=== PATIENT | male | born 1975 | race African-American/Black ===

== ENCOUNTER 2016-03-22 17:12 | Emergency (ER) | payer OTHER ==
[~2016-03-22] VITALS: Ht 193 cm; Wt 76.0 kg
[2016-03-22 17:44] VITALS: Ht 193 cm; Wt 76.0 kg
[2016-03-22] MEDS ORDERED: DOXY100T20 PO (18:52)
[2016-03-22] MEDS ORDERED: IBUP-1542 PO (18:52)
[2016-03-22] MEDS ORDERED: ACYC800T PO (18:52)
[2016-03-22] MEDS ORDERED: HYDR-906 PO (18:52)
--- NOTE | 2016-03-22 18:59 | ERD ---
ER Documentation Chief Complaint Date/Time DATE: 03/22/16 TIME: 18:57 Chief Complaint RIGHT EAR PAIN WITH SWOLLEN NODULE & RIGHT-SIDE ARGUETA X 2 DAYS HPI This 32-year-old male complains of pain anterior to his right ear and a headache which is superficial on the right side of the forehead and face starting 2 days ago. He denies any fevers, vomiting, shortness breath or chest pain. ROS All systems reviewed and are negative except as per history of present illness. Medications Home Meds Active Scripts Ibuprofen* (Ibuprofen*) 600 Mg Tablet, 600 MG PO Q6, #15 TAB Prov:DEBRA CROSS MD 03/22/16 Hydrocodone/Acetaminophen ([place] 5-325 Tablet) 1 Each Tablet, 1 EACH PO QID, # 12 TAB Prov:DEBRA CROSS MD 03/22/16 Doxycycline Hyclate* (Doxycycline Hyclate*) 100 Mg Tablet.dr, 100 MG PO BID for 7 Days, TAB Prov:DEBRA CROSS MD 03/22/16 Acyclovir* (Acyclovir*) 800 Mg Tablet, 800 MG PO 5 TIMES DAILY for 7 Days, TAB Prov:DEBRA CROSS MD 03/22/16 Allergies Allergies: Coded Allergies: No Known Allergy (Unverified , 10/07/15) PMhx/Soc Medical and Surgical Hx: pt denies Medical Hx, pt denies Surgical Hx History of Surgery: No Anesthesia Reaction: No Hx Neurological Disorder: No Hx Cardiac Disorders: No Hx Psychiatric Problems: No Hx Substance Use: Yes Hx Tobacco Use: Yes Smoking Status: Heavy tobacco smoker Physical Exam Vitals Vital Signs Date Time Temp Pulse Resp B/P Pulse Ox O2 Delivery O2 Flow Rate FiO2 03/22/16 17:44 99.7 79 20 134/81 100 Physical Exam Const: [] Alert, [id number] per Head: Atraumatic Eyes: Normal Conjunctiva ENT: Normal External Ears, Nose and Mouth. There is some swelling and tender nodule in the right preauricular area. Some tenderness on the right forehead extending to the right upper eyelid with some possible mild swelling on the scalp and affected area. There is no obvious rashes although there may be some slight irritation. There is no pulsatile arteries appreciated. Neck: Full range of motion..~ No meningismus. Resp: Clear to auscultation bilaterally Cardio: Regular rate and rhythm, no murmurs Abd: Soft, non tender, non distended. Normal bowel sounds Skin: No petechiae or rashes Back: No midline or flank tenderness Ext: No cyanosis, or edema Neur: Awake and alert Psych: Normal Mood and Affect Results 24 hrs Current Medications Medications (Trade) Dose Ordered Sig/Cherelle Route PRN Reason Start Time Stop Time Status Last Admin Dose Admin Dexamethasone (Decadron) 10 mg ONCE ONCE PO 03/22/16 19:00 03/22/16 19:01 Acetaminophen/ Hydrocodone Bitart ([place] (5/325)) 1 tab ONCE ONCE PO 03/22/16 19:00 03/22/16 19:01 Ibuprofen (Motrin) 600 mg ONCE ONCE PO 03/22/16 19:00 03/22/16 19:01 Acyclovir (Zovirax) 800 mg ONCE ONCE PO 03/22/16 19:00 03/22/16 19:01 Procedures/MDM This patient presents with a 2 day history of some swelling and tenderness in the right anterior ear consistent with a reactive lymph node. Tenderness in mild swelling on the right forehead and facial area suggest possible very early shingles without obvious rash. He may have folliculitis causing his lymphadenitis as well. He will be treated empirically with acyclovir, doxycycline and a short course of [place] and ibuprofen. Patient is advised to recheck for new or worsening symptoms with primary care doctor. P patient was administered Decadron 10 mg by mouth, [place] 5 mg and ibuprofen here in the ED. He was also given his first dose of acyclovir. Patient signs and symptoms not consistent with intracranial lesions, mass-effect, neurologic deficit, meningitis. Departure Diagnosis: Primary Impression: Zoster Herpes zoster complications: without complications Qualified Code: B02.9 - Herpes zoster without complication Additional Impression: Lymph node enlargement Condition: Stable Patient Instructions: Lymphangitis, Herpes Zoster Additional Instructions: Suspect early shingles. We will treat for this as well as folliculitis. Recheck for new or worsening symptoms or primary care doctor. DEBRA CROSS MD Mar 22, 2016 18:59
[2016-03-22] MEDS ORDERED: IBUPROFEN 600 MG TAB PO ONE (19:00)
[2016-03-22] MEDS ORDERED: HYDROCODONE/APAP (5/325) TAB PO ONE (19:00)
[2016-03-22] MEDS ORDERED: ACYCLOVIR 800 MG TAB PO ONE (19:00)
[2016-03-22] MEDS ORDERED: DEXAMETHASONE 4 MG TAB PO ONE (19:00)
== END 2016-03-22 19:31 | disposition home or self-care (01) ==
LOC: E/R 17:12 → FTE 19:31
DX: B02.9 Zoster without complications (principal); R59.9 Enlarged lymph nodes, unspecified; F17.210 Nicotine dependence, cigarettes, uncomplicated
CPT/HCPCS: Z7502; Z7610; 99284